=== PATIENT | female | born 1955 | race Caucasian/White ===

== ENCOUNTER 2016-12-06 22:20 | Emergency (ER) | payer BC, SELFPAY ==
--- NOTE | 2017-01-10 16:17 | ER ---
ADMIT: 12/06/2016 RM/LOC: ER [facility] MR#: [id number] [facility] [address] [place], [place] [id number] CYNTHIA MORE Chantel [address] [place] [address] Emergency Room Report SEX: F AGE: 61 : 1955 DATE: 12/06/2016 ADDENDUM: This patient comes into the ER because she is having abdominal pain. It is high in her abdomen and it started today. She rates it as being moderate, feels like a pressure and she does not have any appetite. On physical exam, her pain is in her right upper quadrant. It is soft and there is no rebound. CBC, CMP, and urinalysis are normal. DISCUSSION: In the emergency room, IV of normal saline was started. She was given a liter of bolus with Zofran and Toradol. She was later given tramadol. When you talk to the patient, she says that it is in her abdomen, but when you actually have her show you were it hurts, it seems to be in her chest. We did get an EKG which was normal and a chest x-ray that was also normal. DIAGNOSIS: Abdominal pain. I wrote a prescription for tramadol. I ordered an outpatient study as the Toradol and tramadol took her pain away, and she is to follow up with Dr. Dickens for the results. Please see my T-sheet. PAUL Prince / Chance Rosales MD / owenl JOB #: [id number] CC: Chance Rosales MD, Attending Physician Fei Dickens MD, Family Physician
== END 2016-12-07 00:15 | disposition home or self-care (01) ==
LOC: ER 22:20
DX: R10.9 Unspecified abdominal pain (principal); F17.210 Nicotine dependence, cigarettes, uncomplicated; Z88.0 Allergy status to penicillin

== ENCOUNTER → 2016-12-08 | Outpatient (CLI) | payer BC, SELFPAY | END | disposition home or self-care (01) | LOC: RAD.S 09:19 | DX: R10.9 Unspecified abdominal pain (principal); N20.0 Calculus of kidney ==